=== PATIENT | male | born 1955 | race Caucasian/White ===

== ENCOUNTER 2023-12-24 12:20 | Outpatient (RCR) | payer MEDICARE, BC, SELFPAY ==
[2023-12-24] MEDS: SODIUM CHLORIDE 0.9 % (FLUSH) 10 ML SYRINGE IVF (13:21)
== END 2024-06-21 23:59 | disposition home or self-care (01) ==
LOC: CCIC 12:20
PROVIDERS: PCP Family Medicine; Visit Provider Clinical Nurse Specialist
DX: C15.8 Malignant neoplasm of overlapping sites of esophagus (principal)
CPT/HCPCS: 99211